=== PATIENT | female | born 2000 | race Caucasian/White ===

== ENCOUNTER → 2019-01-11 | Outpatient (CLI) | payer BC ==
--- NOTE | 2019-01-11 11:57 | MR ---
MR right ankle with and without contrast HISTORY: Soft tissue mass posterior foot Multiplanar multisequence and postcontrast images obtained through the right ankle following 5.5 cc G adavist IV. No comparisons There is an overlying marker at the site of the patient's Achilles tendon insertion at the level of t he posterior calcaneus. Some local increased T2 signal is present suggesting fluid in [place] fat pad a nd adjacent to the Achilles tendon insertion. Achilles tendon shows no tear. Achilles tendon is not t hickened. Bone marrow signal is maintained. Flexor and extensor tendons, peroneal longus and brevis t endons are intact. No fracture or dislocation. No evident ligamentous disruption. IMPRESSION: Findings suggest peritendonitis the level of the Achilles insertion
== END | disposition home or self-care (01) ==
LOC: RADMRIMAIN 08:43
PROVIDERS: ATTEND Podiatrist Foot & Ankle Surgery
DX: M79.89 Other specified soft tissue disorders (principal)
CPT/HCPCS: 73723; A9585